=== PATIENT | male | born 1990 | race Caucasian/White ===

== ENCOUNTER 2017-06-02 02:51 | Emergency (ER) | payer OTHER ==
[~2017-06-02] VITALS: Ht 182.9 cm; Wt 85.3 kg
[2017-06-02 02:54] VITALS: BP 136/72
--- NOTE | 2017-06-02 03:02 | NUR ---
PT TAKEN TO BED 8
--- NOTE | 2017-06-02 03:07 | NUR ---
27 Y/O F W/C/O ABD PAIN, N/V/D X YESTERDAY. VSS, PT DENIES ANY FEVER. C/O PAIN 07/06. ER MADE AWARE.
--- NOTE | 2017-06-02 03:19 | NUR ---
Patient being evaluated by Dr. Epps at bedside.
[2017-06-02] MEDS ORDERED: KETOROLAC 60 MG/2 ML VIAL IM ONE (03:30)
[2017-06-02 03:44] LABS: BASOPHILS # (AUTO) 0.3 K/uL (0.00-0.22); BASOPHILS % (AUTO) 2.1 % (0.0-2.0); EOSINOPHILS # (AUTO) 0.1 K/uL (0-0.4); EOSINOPHILS % (AUTO) 0.6 % (0.0-4.0); HEMATOCRIT 51.3 % (36-52); HEMOGLOBIN 16.7 g/dL (12.0-18.0); LYMPHOCYTES # (AUTO) 0.9 K/uL (2.0-11.5); MEAN CORPUSCULAR HEMOGLOBIN 28 pg (27-31); MEAN CORPUSCULAR HGB CONC 33 g/dL (33-37); MEAN CORPUSCULAR VOLUME 85 fL (80-94); MONOCYTES # (AUTO) 0.4 K/uL (0.8-1.0); MONOCYTES % (AUTO) 2.3 % (1.7-9.3); NEUTROPHILS # (AUTO) 13.8 K/uL (1.8-7.7); NEUTROPHILS % (AUTO) 89.3 % (42.2-75.2); PLATELET COUNT (AUTO) 205 K/uL (140-450); RED BLOOD CELL COUNT(AUTO) 6.04 MIL/uL (4.20-6.10); RED CELL DISTRIBUTION WIDTH 13.3 % (11.6-13.7)
[2017-06-02 03:56] LABS: ANION GAP 16.5 (8-16); CREATININE 1.2 mg/dL (0.7-1.3); POTASSIUM 3.5 mmol/L (3.5-5.1)
--- NOTE | 2017-06-02 03:58 | NUR ---
PT RESTING IN BED, ASLEEP, AWATING FOR RESUTLS, VSS.
[2017-06-02 04:02] LABS: ALBUMIN 4.4 g/dL (3.4-5.0)
[2017-06-02 04:06] LABS: LYMPHOCYTES % (AUTO) 5.7 % (20.5-51.1); WHITE BLOOD COUNT (AUTO) 15.5 K/uL (4.8-10.8)
--- NOTE | 2017-06-02 04:22 | NUR ---
X-Ray at bedside.
[2017-06-02 05:04] VITALS: BP 127/75
--- NOTE | 2017-06-02 05:04 | NUR ---
Patient discharged with v/s stable. Written and verbal after care instructions given and explained. Patient alert, oriented and verbalized understanding of instructions. Ambulatory with steady gait. All questions addressed prior to discharge. ID band removed. Patient advised to follow up with PMD IN 1-2 DAYS. Rx of ZOFRAN given. Patient educated on indication of medication including possible reaction and side effects. Opportunity to ask questions provided and answered.
== END 2017-06-02 05:04 | disposition home or self-care (01) ==
LOC: MED 02:51
DX: K52.9 Noninfective gastroenteritis and colitis, unspecified (principal); Z88.8 Allergy status to other drugs, medicaments and biological substances
CPT/HCPCS: 36415; 74000; 80053; 81002; 82150; 83615; 83690; 85025; 96372; 99285; J1885; Q0092

== ENCOUNTER 2017-06-03 13:30 | Inpatient (IN) | payer OTHER ==
[~2017-06-03] VITALS: Ht 182.9 cm; Wt 82.6 kg
[2017-06-03 13:48] VITALS: BP 100/83
[2017-06-03] MEDS ORDERED: NACL 0.9% 1,000 ML IV ONE (15:50)
[2017-06-03] MEDS ORDERED: HYDROmorphone 1 MG/ML AMP IVP ONE (15:50)
[2017-06-03 16:21] LABS: BASOPHILS # (AUTO) 0.1 K/uL (0.00-0.22); BASOPHILS % (AUTO) 0.9 % (0.0-2.0); EOSINOPHILS # (AUTO) 0.2 K/uL (0-0.4); EOSINOPHILS % (AUTO) 1.6 % (0.0-4.0); HEMATOCRIT 52.5 % (36-52); HEMOGLOBIN 17.5 g/dL (12.0-18.0); LYMPHOCYTES # (AUTO) 0.4 K/uL (2.0-11.5); LYMPHOCYTES % (AUTO) 3.1 % (20.5-51.1); MEAN CORPUSCULAR HEMOGLOBIN 28 pg (27-31); MEAN CORPUSCULAR HGB CONC 34 g/dL (33-37); MEAN CORPUSCULAR VOLUME 84 fL (80-94); MONOCYTES # (AUTO) 0.4 K/uL (0.8-1.0); MONOCYTES % (AUTO) 3.1 % (1.7-9.3); NEUTROPHILS # (AUTO) 11.3 K/uL (1.8-7.7); NEUTROPHILS % (AUTO) 91.3 % (42.2-75.2); PLATELET COUNT (AUTO) 143 K/uL (140-450); RED BLOOD CELL COUNT(AUTO) 6.28 MIL/uL (4.20-6.10); RED CELL DISTRIBUTION WIDTH 13.3 % (11.6-13.7); WHITE BLOOD COUNT (AUTO) 12.4 K/uL (4.8-10.8)
[2017-06-03 16:28] LABS: ANION GAP 15.3 (8-16); CARBON DIOXIDE 28.7 mmol/L (21-32); CREATININE 1.8 mg/dL (0.7-1.3)
[2017-06-03 16:34] LABS: ALBUMIN 3.8 g/dL (3.4-5.0); TOTAL BILIRUBIN 3.2 mg/dL (0.0-1.0)
[2017-06-03 18:34] LABS: PROTHROMBIN TIME 14.6 secs (10.8-13.4)
[2017-06-03 18:43] LABS: CHOL/HDL RATIO 2.5 (1-4.5); FREE T4 (FREE THYROXINE) 1.12 ng/dL (0.76-1.46); MAGNESIUM 1.6 mg/dL (1.8-2.4); PHOSPHORUS 4.9 mg/dL (2.5-4.9); THYROID STIMULATING HORMONE 3.04 uIU/mL (0.34-3.74)
[2017-06-03 18:54] LABS: APPEARANCE,URINE CLOUDY (CLEAR); BILIRUBIN,URINE 2+ (NEGATIVE); BLOOD, URINE TRACE-L (NEGATIVE); COLOR,URINE ORANGE (YELLOW); LEUKOCYTE ESTERASE ,URINE NEGATIVE (NEGATIVE); NITRITE, URINE POSITIVE (NEGATIVE); UGLUCOSE NEGATIVE (NEGATIVE)
[2017-06-03 19:00] VITALS: BP 105/84
[2017-06-03 19:13] LABS: RBC,URINE 0-5 (RARE) /HPF (0-5); WBC,URINE 0-5 (RARE) /HPF (0-5)
[2017-06-03] MEDS: NACL 0.9% 1,000 ML IV SCH (19:30)
[2017-06-03 19:45] VITALS: BP 114/76
[2017-06-03] MEDS: MORPHINE SULFATE 2 MG/ML SYR IVP PRN (21:05)
[2017-06-03] MEDS ORDERED: LEVOFLOXACIN 750 MG/D5W PREMIX 150 ML IV SCH (21:50)
[2017-06-03] MEDS ORDERED: MAG SULF 2000 MG/WATER PREMIX 50 ML IV SCH (22:40)
[2017-06-03 23:09] VITALS: BP 110/74
[2017-06-03] MEDS: ACETAMINOPHEN 325 MG TAB PO PRN (23:21)
[2017-06-04 00:20] VITALS: BP 112/68
[2017-06-04] MEDS: MORPHINE SULFATE 2 MG/ML SYR IVP PRN ×6 (01:26→20:42)
[2017-06-04 04:50] VITALS: BP 119/75
[2017-06-04] MEDS: NACL 0.9% 1,000 ML IV SCH ×3 (05:46→22:26)
[2017-06-04 06:39] LABS: HEMATOCRIT 46.6 % (36-52); HEMOGLOBIN 15.8 g/dL (12.0-18.0); MEAN CORPUSCULAR HEMOGLOBIN 29 pg (27-31); MEAN CORPUSCULAR HGB CONC 34 g/dL (33-37); MEAN CORPUSCULAR VOLUME 85 fL (80-94); PLATELET COUNT (AUTO) 116 K/uL (140-450); RED BLOOD CELL COUNT(AUTO) 5.51 MIL/uL (4.20-6.10); RED CELL DISTRIBUTION WIDTH 13.3 % (11.6-13.7); WHITE BLOOD COUNT (AUTO) 7.8 K/uL (4.8-10.8)
[2017-06-04 07:10] LABS: ANION GAP 13.5 (8-16); CARBON DIOXIDE 26.1 mmol/L (21-32); CREATININE 1.4 mg/dL (0.7-1.3); POTASSIUM 3.6 mmol/L (3.5-5.1)
[2017-06-04 07:21] LABS: LYMPHOCYTES % (MANUAL) 5 % (20-46); MONOCYTES % (MANUAL) 8 % (5-12)
[2017-06-04 08:00] VITALS: BP 107/58
[2017-06-04 08:36] LABS: T4 (THYROXINE) 8.2 ug/dL (4.5-12.0)
[2017-06-04] MEDS ORDERED: METOPROLOL SUCCINATE 50 MG TABER PO SCH (09:00)
[2017-06-04] MEDS ORDERED: PSYLLIUM 12.2 GM/PKT PO SCH (09:00)
[2017-06-04] MEDS ORDERED: METOPROLOL 25 MG TAB PO SCH (09:00)
[2017-06-04] MEDS: CARVEDILOL 3.125 MG TAB PO SCH (09:49)
[2017-06-04] MEDS: ACETAMINOPHEN 325 MG TAB PO PRN ×2 (11:40→20:41)
[2017-06-04] MEDS: PIPER/TAZO 3.375GM/D5W PREMIX 50 ML IV SCH ×3 (12:50→23:21)
[2017-06-04 16:00] VITALS: BP 123/76
[2017-06-04 20:00] VITALS: BP 118/74
[2017-06-05] VITALS: BP 112/64
[2017-06-05] MEDS: MORPHINE SULFATE 2 MG/ML SYR IVP PRN ×7 (01:02→23:06)
[2017-06-05 04:00] VITALS: BP 119/72
[2017-06-05] MEDS: NACL 0.9% 1,000 ML IV SCH ×4 (04:43→23:26)
[2017-06-05] MEDS: ONDANSETRON 4 MG/2 ML VIAL IM/IVP PRN ×3 (04:43→18:44)
[2017-06-05] MEDS: PIPER/TAZO 3.375GM/D5W PREMIX 50 ML IV SCH ×4 (05:47→23:06)
[2017-06-05 07:10] LABS: BASOPHILS # (AUTO) 0.1 K/uL (0.00-0.22); BASOPHILS % (AUTO) 0.6 % (0.0-2.0); EOSINOPHILS # (AUTO) 0.2 K/uL (0-0.4); EOSINOPHILS % (AUTO) 1.8 % (0.0-4.0); HEMATOCRIT 42.5 % (36-52); HEMOGLOBIN 14.4 g/dL (12.0-18.0); LYMPHOCYTES # (AUTO) 0.5 K/uL (2.0-11.5); LYMPHOCYTES % (AUTO) 6.1 % (20.5-51.1); MEAN CORPUSCULAR HEMOGLOBIN 29 pg (27-31); MEAN CORPUSCULAR HGB CONC 34 g/dL (33-37); MEAN CORPUSCULAR VOLUME 84 fL (80-94); MONOCYTES # (AUTO) 0.7 K/uL (0.8-1.0); MONOCYTES % (AUTO) 7.7 % (1.7-9.3); NEUTROPHILS % (AUTO) 83.8 % (42.2-75.2); PLATELET COUNT (AUTO) 117 K/uL (140-450); RED BLOOD CELL COUNT(AUTO) 5.05 MIL/uL (4.20-6.10); RED CELL DISTRIBUTION WIDTH 13.3 % (11.6-13.7)
[2017-06-05 07:38] LABS: ANION GAP 11.6 (8-16); CREATININE 1.3 mg/dL (0.7-1.3); POTASSIUM 3.6 mmol/L (3.5-5.1)
[2017-06-05 07:39] LABS: WHITE BLOOD COUNT (AUTO) 8.5 K/uL (4.8-10.8)
[2017-06-05 08:00] VITALS: BP 116/70
[2017-06-05] MEDS: CARVEDILOL 3.125 MG TAB PO SCH (09:06)
[2017-06-05 12:00] VITALS: BP 117/72
[2017-06-05] MEDS ORDERED: MAG SULF 2000 MG/WATER PREMIX 50 ML IV ONE (17:10)
[2017-06-05 20:00] VITALS: BP 121/61
[2017-06-05] MEDS: ACETAMINOPHEN 325 MG TAB PO PRN (20:01)
[2017-06-05] MEDS: POLYETHYLENE GLYCOL 17 GM/PKT PO SCH (21:00)
[2017-06-05] MEDS: SIMETHICONE 80 MG TAB.CHEW PO PRN (22:10)
[2017-06-06] VITALS: BP 117/71
[2017-06-06] MEDS: MORPHINE SULFATE 2 MG/ML SYR IVP PRN ×3 (02:34→11:04)
[2017-06-06] MEDS: SIMETHICONE 80 MG TAB.CHEW PO PRN (02:39)
[2017-06-06] MEDS: NACL 0.9% 1,000 ML IV SCH ×4 (02:40→23:29)
[2017-06-06] MEDS: PIPER/TAZO 3.375GM/D5W PREMIX 50 ML IV SCH ×4 (05:35→23:26)
[2017-06-06 06:18] LABS: BASOPHILS % (AUTO) 0.6 % (0.0-2.0); EOSINOPHILS # (AUTO) 0.2 K/uL (0-0.4); EOSINOPHILS % (AUTO) 2.2 % (0.0-4.0); HEMATOCRIT 40.6 % (36-52); HEMOGLOBIN 13.9 g/dL (12.0-18.0); LYMPHOCYTES # (AUTO) 0.8 K/uL (2.0-11.5); LYMPHOCYTES % (AUTO) 11.7 % (20.5-51.1); MEAN CORPUSCULAR HEMOGLOBIN 28 pg (27-31); MEAN CORPUSCULAR HGB CONC 34 g/dL (33-37); MEAN CORPUSCULAR VOLUME 83 fL (80-94); MONOCYTES # (AUTO) 0.8 K/uL (0.8-1.0); MONOCYTES % (AUTO) 11.6 % (1.7-9.3); NEUTROPHILS # (AUTO) 5.1 K/uL (1.8-7.7); NEUTROPHILS % (AUTO) 73.9 % (42.2-75.2); PLATELET COUNT (AUTO) 136 K/uL (140-450); RED BLOOD CELL COUNT(AUTO) 4.88 MIL/uL (4.20-6.10); RED CELL DISTRIBUTION WIDTH 13.2 % (11.6-13.7); WHITE BLOOD COUNT (AUTO) 6.9 K/uL (4.8-10.8)
[2017-06-06 06:43] LABS: ANION GAP 10.2 (8-16); CARBON DIOXIDE 27.4 mmol/L (21-32); CREATININE 1.2 mg/dL (0.7-1.3); POTASSIUM 3.6 mmol/L (3.5-5.1)
[2017-06-06 08:00] VITALS: BP 114/71
[2017-06-06] MEDS: LACTOBACILLUS RHAMNOSUS GG 1 EACH CAP PO SCH (08:48)
[2017-06-06] MEDS: metroNIDAZOLE 250 MG TAB PO SCH ×3 (08:48→16:43)
[2017-06-06] MEDS: CARVEDILOL 3.125 MG TAB PO SCH (08:48)
[2017-06-06] MEDS: POLYETHYLENE GLYCOL 17 GM/PKT PO SCH ×2 (08:48→21:00)
[2017-06-06 10:55] VITALS: BP 122/79
[2017-06-06 12:00] VITALS: BP 116/81
[2017-06-06] MEDS ORDERED: KETOROLAC 15 MG/ML VIAL IVP PRN (12:25)
[2017-06-06] MEDS: ONDANSETRON 4 MG/2 ML VIAL IM/IVP PRN (13:40)
[2017-06-06] MEDS: HYDROcodone/APAP 7.5/325 MG 1 TAB PO PRN ×2 (14:28→18:42)
[2017-06-07] VITALS: BP 123/81
[2017-06-07] MEDS: HYDROcodone/APAP 7.5/325 MG 1 TAB PO PRN ×5 (00:38→21:01)
[2017-06-07] MEDS ORDERED: MAGNESIUM CITRATE 300 ML BTL PO PRN (05:45)
[2017-06-07] MEDS: PIPER/TAZO 3.375GM/D5W PREMIX 50 ML IV SCH ×4 (05:48→23:43)
[2017-06-07 08:00] VITALS: BP 110/69
[2017-06-07] MEDS: NACL 0.9% 1,000 ML IV SCH ×2 (08:12→20:36)
[2017-06-07] MEDS: CARVEDILOL 3.125 MG TAB PO SCH (09:07)
[2017-06-07] MEDS: metroNIDAZOLE 250 MG TAB PO SCH ×3 (09:07→17:12)
[2017-06-07] MEDS: LACTOBACILLUS RHAMNOSUS GG 1 EACH CAP PO SCH (09:08)
[2017-06-07 16:00] VITALS: BP 124/71
[2017-06-07] MEDS: POLYETHYLENE GLYCOL 17 GM/PKT PO SCH ×2 (17:13→20:38)
[2017-06-07] MEDS ORDERED: MAGNESIUM CITRATE 300 ML BTL PO SCH (18:00)
[2017-06-07] MEDS: POTASSIUM CHLORIDE 20% 40 MEQ/15 ML UDC GT SCH (20:37)
[2017-06-08] VITALS (10 sets, daily range): BP systolic 110–133; BP diastolic 73–88
[2017-06-08] MEDS: HYDROcodone/APAP 7.5/325 MG 1 TAB PO PRN ×3 (04:29→23:02)
[2017-06-08] MEDS: PIPER/TAZO 3.375GM/D5W PREMIX 50 ML IV SCH ×3 (05:34→17:40)
[2017-06-08] MEDS: NACL 0.9% 1,000 ML IV SCH ×2 (05:40→23:03)
[2017-06-08 06:54] LABS: BASOPHILS # (AUTO) 0.1 K/uL (0.00-0.22); BASOPHILS % (AUTO) 0.8 % (0.0-2.0); EOSINOPHILS # (AUTO) 0.3 K/uL (0-0.4); EOSINOPHILS % (AUTO) 1.9 % (0.0-4.0); HEMATOCRIT 39.8 % (36-52); HEMOGLOBIN 13.9 g/dL (12.0-18.0); LYMPHOCYTES % (AUTO) 7.2 % (20.5-51.1); MEAN CORPUSCULAR HEMOGLOBIN 29 pg (27-31); MEAN CORPUSCULAR HGB CONC 35 g/dL (33-37); MEAN CORPUSCULAR VOLUME 82 fL (80-94); MONOCYTES # (AUTO) 1.3 K/uL (0.8-1.0); MONOCYTES % (AUTO) 9.7 % (1.7-9.3); NEUTROPHILS # (AUTO) 10.6 K/uL (1.8-7.7); NEUTROPHILS % (AUTO) 80.4 % (42.2-75.2); PLATELET COUNT (AUTO) 203 K/uL (140-450); RED BLOOD CELL COUNT(AUTO) 4.87 MIL/uL (4.20-6.10); RED CELL DISTRIBUTION WIDTH 13.1 % (11.6-13.7)
[2017-06-08 06:58] LABS: ANION GAP 11.8 (8-16); CARBON DIOXIDE 25.5 mmol/L (21-32); CREATININE 1.1 mg/dL (0.7-1.3); POTASSIUM 3.3 mmol/L (3.5-5.1)
[2017-06-08 07:10] LABS: MAGNESIUM 1.8 mg/dL (1.8-2.4); PHOSPHORUS 3.6 mg/dL (2.5-4.9)
[2017-06-08 07:43] LABS: WHITE BLOOD COUNT (AUTO) 13.3 K/uL (4.8-10.8)
[2017-06-08] MEDS: metroNIDAZOLE 250 MG TAB PO SCH ×3 (08:49→17:37)
[2017-06-08] MEDS: CARVEDILOL 3.125 MG TAB PO SCH (08:49)
[2017-06-08] MEDS: LACTOBACILLUS RHAMNOSUS GG 1 EACH CAP PO SCH (08:49)
[2017-06-08] MEDS: POTASSIUM CHLORIDE 20% 40 MEQ/15 ML UDC GT SCH ×2 (08:51→21:44)
[2017-06-08] MEDS: POLYETHYLENE GLYCOL 17 GM/PKT PO SCH ×4 (08:54→21:44)
[2017-06-08] MEDS ORDERED: diphenhydrAMINE 50 MG/ML VIAL ONE (10:37)
[2017-06-08] MEDS ORDERED: MIDAZOLAM 2 MG/2 ML VIAL ONE ×2 (10:37)
[2017-06-08] MEDS ORDERED: fentaNYL 0.05 MG/ML VIAL ONE (10:37)
[2017-06-08] MEDS: MIDAZOLAM 2 MG/2 ML VIAL IVP ONE ×2 (11:54→13:37)
[2017-06-08] MEDS: fentaNYL 0.05 MG/ML VIAL IVP ONE ×2 (11:56→13:36)
[2017-06-08] MEDS: diphenhydrAMINE 50 MG/ML VIAL IVP ONE ×2 (11:58→13:36)
[2017-06-08] MEDS ORDERED: POTASSIUM CHLORIDE 10 MEQ TABER PO SCH (16:44)
[2017-06-09] MEDS: PIPER/TAZO 3.375GM/D5W PREMIX 50 ML IV SCH ×3 (00:16→11:14)
[2017-06-09] MEDS: HYDROcodone/APAP 7.5/325 MG 1 TAB PO PRN (05:47)
[2017-06-09 06:08] LABS: BASOPHILS # (AUTO) 0.1 K/uL (0.00-0.22); BASOPHILS % (AUTO) 0.8 % (0.0-2.0); EOSINOPHILS # (AUTO) 0.4 K/uL (0-0.4); EOSINOPHILS % (AUTO) 3.5 % (0.0-4.0); HEMATOCRIT 40.7 % (36-52); HEMOGLOBIN 13.8 g/dL (12.0-18.0); LYMPHOCYTES # (AUTO) 1.8 K/uL (2.0-11.5); LYMPHOCYTES % (AUTO) 17.1 % (20.5-51.1); MEAN CORPUSCULAR HEMOGLOBIN 28 pg (27-31); MEAN CORPUSCULAR HGB CONC 34 g/dL (33-37); MEAN CORPUSCULAR VOLUME 84 fL (80-94); MONOCYTES # (AUTO) 0.8 K/uL (0.8-1.0); MONOCYTES % (AUTO) 7.2 % (1.7-9.3); NEUTROPHILS # (AUTO) 7.6 K/uL (1.8-7.7); NEUTROPHILS % (AUTO) 71.4 % (42.2-75.2); PLATELET COUNT (AUTO) 222 K/uL (140-450); RED BLOOD CELL COUNT(AUTO) 4.87 MIL/uL (4.20-6.10); RED CELL DISTRIBUTION WIDTH 12.8 % (11.6-13.7); WHITE BLOOD COUNT (AUTO) 10.7 K/uL (4.8-10.8)
[2017-06-09 06:28] LABS: ANION GAP 12.7 (8-16); CARBON DIOXIDE 25.8 mmol/L (21-32); CREATININE 1.1 mg/dL (0.7-1.3); POTASSIUM 3.5 mmol/L (3.5-5.1)
[2017-06-09 08:00] VITALS: BP 122/76
[2017-06-09] MEDS: metroNIDAZOLE 250 MG TAB PO SCH (08:52)
[2017-06-09] MEDS: LACTOBACILLUS RHAMNOSUS GG 1 EACH CAP PO SCH (08:52)
[2017-06-09] MEDS: POTASSIUM CHLORIDE 20% 40 MEQ/15 ML UDC GT SCH (08:52)
[2017-06-09] MEDS: CARVEDILOL 3.125 MG TAB PO SCH (08:53)
[2017-06-09] MEDS: POLYETHYLENE GLYCOL 17 GM/PKT PO SCH (08:53)
[2017-06-09] MEDS: NACL 0.9% 1,000 ML IV SCH (09:03)
[2017-06-09] MEDS ORDERED: DOCU-67 PO (11:43)
[2017-06-09] MEDS ORDERED: SIME80CT27 PO (11:43)
[2017-06-09 11:45] VITALS: BP 117/72
[2017-06-10] MEDS ORDERED: POLYETHYLENE GLYCOL 17 GM/PKT PO SCH (09:00)
== END 2017-06-09 12:55 | disposition home or self-care (01) | DRG 871 ==
LOC: MED 13:30 → MTU 18:10
PROVIDERS: ADMIT Family Medicine; ATTEND Family Medicine
PROC: 0DBN8ZX Excision of Sigmoid Colon, Via Natural or Artificial Opening Endoscopic, Diagnostic (ICD-10-PCS; 2017-06-08)
PROC: 0DBP8ZX Excision of Rectum, Via Natural or Artificial Opening Endoscopic, Diagnostic (ICD-10-PCS; 2017-06-08)
PROC: 0DBM8ZX Excision of Descending Colon, Via Natural or Artificial Opening Endoscopic, Diagnostic (ICD-10-PCS; principal; 2017-06-08 11:30)
DX: A41.9 Sepsis, unspecified organism (principal); N17.0 Acute kidney failure with tubular necrosis; N39.0 Urinary tract infection, site not specified; K56.60 Unspecified intestinal obstruction; K57.90 Diverticulosis of intestine, part unspecified, without perforation or abscess without bleeding; E11.9 Type 2 diabetes mellitus without complications; I25.10 Atherosclerotic heart disease of native coronary artery without angina pectoris; K58.9 Irritable bowel syndrome, unspecified; F17.290 Nicotine dependence, other tobacco product, uncomplicated; R80.9 Proteinuria, unspecified; R00.0 Tachycardia, unspecified; E87.6 Hypokalemia; K52.9 Noninfective gastroenteritis and colitis, unspecified; K59.09 Other constipation; E86.0 Dehydration; E83.42 Hypomagnesemia; Z88.7 Allergy status to serum and vaccine; Z80.3 Family history of malignant neoplasm of breast; Z82.49 Family history of ischemic heart disease and other diseases of the circulatory system; Z82.61 Family history of arthritis
CPT/HCPCS: 36415; 74020; 74022; 74250; 80048; 80053; 81001; 82150; 83036; 83605; 83615; 83690; 83735; 83880; 84100; 84436; 84439; 84443; 84479; 85025; 85610; 85730; 86140; 87040; 87045; 87070; 87081; 87086; 88305; 93005; 96361; 96374; 99285; J1170; J1200; J1885; J1956; J2250; J2270; J2405; J2543; J3010; J3475; J7030